=== PATIENT | male | born 1960 | race African-American/Black ===

== ENCOUNTER 2018-03-07 16:19 | Emergency (ER) | payer OTHER ==
[~2018-03-07] VITALS: Ht 188 cm; Wt 86.2 kg
[2018-03-07 17:40] LABS: BASOPHILS # (AUTO) 0.1 /CMM (0.0-0.2); BASOPHILS % (AUTO) 1.4 % (0.0-2.0); EOSINOPHILS % (AUTO) 1.8 % (0.0-6.0); HEMATOCRIT 41 % (39-51); HEMOGLOBIN 13.8 g/dL (13.5-17.5); LYMPHOCYTES # (AUTO) 1.8 /CMM (0.8-4.8); LYMPHOCYTES % (AUTO) 37.3 % (20.0-44.0); MEAN CORPUSCULAR HGB CONC 34 g/dl (31.0-36.0); MEAN CORPUSCULAR VOLUME 85 fL (80-96); MONOCYTES # (AUTO) 0.5 /CMM (0.1-1.30); MONOCYTES % (AUTO) 11.1 % (2.0-12.0); NEUTROPHILS # (AUTO) 2.2 /CMM (1.8-8.9); NEUTROPHILS % (AUTO) 48.4 % (43.0-81.0); PLATELET COUNT (AUTO) 166 /CMM (150-450); RDW COEFFICIENT OF VARIATION 13.3 (11.5-15.0); RED BLOOD CELL COUNT(AUTO) 4.83 MIL/uL (4.5-6.0); WHITE BLOOD COUNT (AUTO) 4.7 K/uL (4.3-11.0)
[2018-03-07 17:49] LABS: CALCIUM, SERUM 9.1 mg/dL (8.5-10.1); POTASSIUM 3.8 mmol/L (3.5-5.1)
[2018-03-07 17:55] LABS: ALBUMIN 3.6 g/dL (3.4-5.0); BILIRUBIN,TOTAL 0.4 mg/dL (0.2-1.0); TOTAL PROTEIN, SERUM 7.3 g/dL (6.4-8.2)
[2018-03-07] MEDS ORDERED: IBUPROFEN 400 MG TABLET ONE (18:39)
[2018-03-07 18:43] VITALS: BP 132/80
[2018-03-07] MEDS ORDERED: IBUPROFEN 400 MG TABLET PO ONE (19:00)
== END 2018-03-07 18:44 | disposition home or self-care (01) ==
LOC: ER 16:27
DX: M26.629 Arthralgia of temporomandibular joint, unspecified side (principal); G35 Multiple sclerosis
CPT/HCPCS: 36415; 70486-TC; 80053-TC; 85025-TC; A4606; Z7610

== ENCOUNTER 2019-09-21 09:07 | Emergency (ER) | payer MEDICARE, OTHER ==
[~2019-09-21] VITALS: Ht 188 cm; Wt 87.1 kg
[2019-09-21 09:38] LABS: BASOPHILS # (AUTO) 0.1 /CMM (0.0-0.2); BASOPHILS % (AUTO) 0.7 % (0.0-2.0); EOSINOPHILS % (AUTO) 0.3 % (0.0-6.0); HEMATOCRIT 44 % (39-51); HEMOGLOBIN 14.3 g/dL (13.5-17.5); LYMPHOCYTES # (AUTO) 0.7 /CMM (0.8-4.8); LYMPHOCYTES % (AUTO) 8.3 % (20.0-44.0); MEAN CORPUSCULAR HGB CONC 32 g/dl (31.0-36.0); MEAN CORPUSCULAR VOLUME 88 fL (80-96); MONOCYTES # (AUTO) 1.2 /CMM (0.1-1.30); MONOCYTES % (AUTO) 13.5 % (2.0-12.0); NEUTROPHILS # (AUTO) 6.6 /CMM (1.8-8.9); NEUTROPHILS % (AUTO) 77.2 % (43.0-81.0); PLATELET COUNT (AUTO) 187 /CMM (150-450); RED BLOOD CELL COUNT(AUTO) 5.03 MIL/uL (4.5-6.0); WHITE BLOOD COUNT (AUTO) 8.6 K/uL (4.3-11.0)
--- NOTE | 2019-09-21 09:47 | NUR ---
PATIENT ARRIVED AT UNIT. A/O X 4. WITH C/O L SIDED CHEST PAIN THAT STARTED YESTERDAY 10PM. DESCRIBED SHARP PAIN 07/29. PATIENT CONNECTED TO MONITOR. WILL CONTINUE TO MONITOR
[2019-09-21 09:51] LABS: CARBON DIOXIDE 30 mmol/L (21-32); CHLORIDE 102 mmol/L (98-107); CREATININE 0.9 mg/dL (0.6-1.3); GLUCOSE 121 mg/dL (74-106); SODIUM SERUM 137 mmol/L (136-145); UREA NITROGEN, BLOOD 10 mg/dL (7-18)
--- NOTE | 2019-09-21 10:19 | NUR ---
IV removed. Catheter intact and site benign. Pressure and 4x4 applied to site. No bleeding noted.Patient discharged to home in stable condition. Written and verbal after care instructions given. Patient verbalizes understanding of instruction.
--- NOTE | 2019-09-21 10:20 | NUR ---
Written prescriptions provided to patient and verbalized understanding
[2019-09-21 10:27] VITALS: BP 122/73
[2019-09-21] MEDS ORDERED: CEFTRIAXONE 1 G in IV D5W 50 ML IV ONE (10:30)
== END 2019-09-21 10:27 | disposition home or self-care (01) ==
LOC: ER 09:07
DX: J18.9 Pneumonia, unspecified organism (principal); R07.89 Other chest pain; G35 Multiple sclerosis
CPT/HCPCS: 36415; 71045-TC; 80048-TC; 83880; 84484-TC; 85025-TC; J0696; J7060

== ENCOUNTER 2023-07-22 19:31 | Emergency (ER) | payer MEDICARE, OTHER ==
[~2023-07-22] VITALS: Ht 188 cm; Wt 78.5 kg
[2023-07-22 21:03] LABS: BASOPHILS # (AUTO) 0.1 K/uL (0.0-0.2); BASOPHILS % (AUTO) 1.8 % (0.0-2.0); EOSINOPHILS # (AUTO) 0.1 K/uL (0.0-0.7); EOSINOPHILS % (AUTO) 1.5 % (0.0-6.0); HEMATOCRIT 43 % (39-51); HEMOGLOBIN 13.8 g/dL (13.5-17.5); LYMPHOCYTES # (AUTO) 1.5 K/uL (0.8-4.8); LYMPHOCYTES % (AUTO) 30.5 % (20.0-44.0); MEAN CORPUSCULAR HEMOGLOBIN 28 PG (26.0-33.0); MEAN CORPUSCULAR HGB CONC 32 g/dl (31.0-36.0); MEAN CORPUSCULAR VOLUME 88 fL (80-96); MONOCYTES # (AUTO) 0.5 K/uL (0.1-1.30); MONOCYTES % (AUTO) 11.2 % (2.0-12.0); NEUTROPHILS # (AUTO) 2.6 K/uL (1.8-8.9); PLATELET COUNT (AUTO) 154 K/uL (150-450); RED BLOOD CELL COUNT(AUTO) 4.85 MIL/uL (4.5-6.0); RED CELL DISTRIBUTION WIDTH 14.4 % (11.5-15.0); WHITE BLOOD COUNT (AUTO) 4.8 K/uL (4.3-11.0)
[2023-07-22 21:21] LABS: POTASSIUM 3.7 mmol/L (3.5-5.1)
[2023-07-22 21:32] LABS: PLATELET ESTIMATE ADEQU
[2023-07-22 23:03] VITALS: BP 122/82; TEMP 98.5; O2SAT 98
== END 2023-07-22 23:04 | disposition home or self-care (01) ==
LOC: ER 19:33
DX: R42 Dizziness and giddiness (principal); Z60.2 Problems related to living alone
CPT/HCPCS: 36415; 80048-TC; 85025-TC

== ENCOUNTER 2023-11-05 08:28 | Emergency (ER) | payer MEDICARE, OTHER ==
[~2023-11-05] VITALS: Ht 188 cm; Wt 80.7 kg
[2023-11-05 09:47] LABS: BASOPHILS # (AUTO) 0.1 K/uL (0.0-0.2); BASOPHILS % (AUTO) 1.5 % (0.0-2.0); EOSINOPHILS % (AUTO) 0.3 % (0.0-6.0); HEMATOCRIT 44 % (39-51); HEMOGLOBIN 14.3 g/dL (13.5-17.5); LYMPHOCYTES # (AUTO) 0.2 K/uL (0.8-4.8); LYMPHOCYTES % (AUTO) 3.9 % (20.0-44.0); MEAN CORPUSCULAR HEMOGLOBIN 28 PG (26.0-33.0); MEAN CORPUSCULAR HGB CONC 33 g/dl (31.0-36.0); MEAN CORPUSCULAR VOLUME 86 fL (80-96); MONOCYTES # (AUTO) 0.8 K/uL (0.1-1.30); MONOCYTES % (AUTO) 12.9 % (2.0-12.0); NEUTROPHILS # (AUTO) 4.9 K/uL (1.8-8.9); NEUTROPHILS % (AUTO) 81.4 % (43.0-81.0); PLATELET COUNT (AUTO) 166 K/uL (150-450); RED BLOOD CELL COUNT(AUTO) 5.12 MIL/uL (4.5-6.0); RED CELL DISTRIBUTION WIDTH 14.6 % (11.5-15.0)
[2023-11-05 09:47] LABS: APPEARANCE,URINE CLEAR (CLEAR); BILIRUBIN,URINE NEGATIVE (NEGATIVE); BLOOD, URINE NEGATIVE Ery/uL (NEGATIVE); COLOR,URINE YELLOW (YELLOW); KETONES,URINE TRACE mg/dL (NEGATIVE); LEUKOCYTE ESTERASE ,URINE TRACE (NEGATIVE); NITRITE, URINE NEGATIVE (NEGATIVE); PH,URINE 8.5 (5.0-8.0); PROTEIN,URINE NEGATIVE (NEGATIVE); UGLUCOSE NEGATIVE (NEGATIVE)
[2023-11-05 09:56] LABS: CALCIUM, SERUM 8.8 mg/dL (8.5-10.1); CARBON DIOXIDE 27 mmol/L (21-32); CHLORIDE 104 mmol/L (98-107); CREATININE 0.9 mg/dL (0.6-1.3); GLUCOSE 95 mg/dL (74-106); POTASSIUM 3.7 mmol/L (3.5-5.1); SODIUM SERUM 138 mmol/L (136-145); UREA NITROGEN, BLOOD 7 mg/dL (7-18)
[2023-11-05 09:58] LABS: ADD URINE CULTURE YES; BACTERIA,URINE Many /HPF (None Seen); RBC,URINE 0-2 /HPF (0-2); SQUAMOUS EPITHELIAL CELL,UR Few /HPF (None Seen)
[2023-11-05 10:00] LABS: INR 1.03 (0.91-1.10); PARTIAL THROMBOPLASTIN TIME 26.8 SEC (24.3-34.3); PROTHROMBIN TIME 10.9 SECS (9.2-11.1)
[2023-11-05] MEDS ORDERED: TAMSULOSIN 0.4 MG CAP.SR.24H PO ONE (10:00)
[2023-11-05 10:09] LABS: ALANINE AMINOTRANSFERASE 36 U/L (12-78); ALKALINE PHOSPHATASE 65 U/L (46-116); ASPARTATE AMINOTRANSFERASE 39 U/L (15-37); BILIRUBIN,DIRECT 0.1 mg/dL (0.0-0.2); BILIRUBIN,TOTAL 0.8 mg/dL (0.2-1.0); NT-PRO BNP 75 pg/mL (0-125); TOTAL PROTEIN, SERUM 6.1 g/dL (6.4-8.2)
[2023-11-05] MEDS ORDERED: TAMSULOSIN 0.4 MG CAP.SR.24H ONE (10:19)
[2023-11-05] MEDS ORDERED: CIPR-262 PO (10:37)
[2023-11-05] MEDS ORDERED: TAMS-12 PO (10:37)
[2023-11-05 10:50] VITALS: BP 135/77; TEMP 99; O2SAT 100
== END 2023-11-05 10:51 | disposition home or self-care (01) ==
LOC: ER 08:41
DX: N40.0 Benign prostatic hyperplasia without lower urinary tract symptoms (principal); N39.0 Urinary tract infection, site not specified; R06.02 Shortness of breath; Z60.2 Problems related to living alone
CPT/HCPCS: 36415; 71045-TC; 76770-TC; 80048-TC; 80076-TC; 81001; 83880; 84484-TC; 85025-TC; 85730-TC; 87086-TC

== ENCOUNTER 2024-08-12 10:57 | Emergency (ER) | payer MEDICARE, OTHER ==
[~2024-08-12] VITALS: Ht 188 cm; Wt 81.6 kg
[~2024-08-12 10:57] MED LIST: CIPR-262 PO; TAMS-12 PO
[2024-08-12] MEDS: KETOROLAC TROMETHAMINE 15 MG/ML VIAL IM ONE (11:30)
[2024-08-12] MEDS ORDERED: KETOROLAC TROMETHAMINE 15 MG/ML VIAL ONE (12:03)
[2024-08-12] MEDS ORDERED: NAPR-1164 PO (12:33)
[2024-08-12 14:07] VITALS: BP 130/85; TEMP 98; O2SAT 99
== END 2024-08-12 14:08 | disposition home or self-care (01) ==
LOC: ER 11:00
DX: S39.012A Strain of muscle, fascia and tendon of lower back, initial encounter (principal); Z87.39 Personal history of other diseases of the musculoskeletal system and connective tissue; Z60.2 Problems related to living alone; X50.9XXA Other and unspecified overexertion or strenuous movements or postures, initial encounter; Y93.89 Activity, other specified; Y92.098 Other place in other non-institutional residence as the place of occurrence of the external cause; Y99.8 Other external cause status
CPT/HCPCS: 99283; 96372; 72110; J1885